=== PATIENT | female | born 1940 | race Caucasian/White ===

== ENCOUNTER 2017-02-14 10:53 | Day surgery (SDC) | payer MEDICARE, MEDICAID ==
[2015-04-26 10:50] VITALS: BMI 39.2
[2017-02-14] MEDS: Lidocaine 1% Inj (20ml) ONE ×2 (10:33→13:40)
[2017-02-14] MEDS: Bupivacaine-Epi 0.25%-1:200,000 PF Inj ONE ×2 (10:33→13:40)
[~2017-02-14 10:53] MED LIST: Lactated Ringer's 1,000 ML IV ONE; ceFAZolin IV 2 gm in Dextrose 1 GM/50 ML BAG IVPB ONE
[2017-02-14] MEDS ORDERED: ceFAZolin IV 1 gm in Dextrose 0 GM/0 ML BAG IVPB ONE (12:26)
[2017-02-14] MEDS ORDERED: ceFAZolin IV 2 gm in Dextrose 0 GM/0 ML BAG IVPB ONE (12:26)
[2017-02-14] MEDS ORDERED: Bupivacaine/Epi 0.25%-1:200,000 10 ml PF inj IJ ONE (12:27)
[2017-02-14] MEDS ORDERED: Lidocaine 1% Inj (20ml) ONE (12:27)
--- NOTE | 2017-02-14 14:15 | PCM.SURG1 ---
Surgeon's Initial Post Op Note - Surgeon's Notes Surgeon: Cindy Paste Up Artist Apprentice: Ignacio Type of Anesthesia: Local Pre-Operative Diagnosis: L breast sebaceous cyst Operative Findings: same Post-Operative Diagnosis: same Operation Performed: excision of sebaceous cyst Specimen/Specimens Removed: sebaceous cyst Estimated Blood Loss: EBL {In ML}: 5 Blood Products Given: N/A Drains Used: No Drains Post-Op Condition: Good Date of Surgery/Procedure: 02/14/17 Time of Surgery/Procedure: 14:15
[2017-02-14 14:32] VITALS: RESP 16; O2SAT 96
[2017-02-14 15:12] VITALS: BP 141/90; PULSE 72; TEMP 97.3
--- NOTE | 2017-02-16 02:51 | OP ---
PROCEDURE DATE: 02/14/2017 PREOPERATIVE DIAGNOSIS: Sebaceous cyst of the left chest and breast area. POSTOPERATIVE DIAGNOSIS: Sebaceous cyst of the left chest and breast area. PROCEDURE: Excision of sebaceous cyst of the left chest and breast area, approximately 2 x 2 cm size. SURGEON: Portillo White MD. IT SECURITY ADMINISTRATOR: Ayan Adam. TYPE OF ANESTHESIA: Local anesthesia. ESTIMATED BLOOD LOSS: Around 10 mL. DRAINS: None. PATHOLOGY: Sebaceous cyst was sent to the pathology. COMPLICATIONS: None. INTRAOPERATIVE FINDINGS: The patient had approximately 2 x 2 cm sebaceous cyst of the left chest and breast area. DESCRIPTION OF PROCEDURE: On intraoperative steps, this 77-year-old female who was diagnosed with sebaceous cyst of the left chest and breast area and the patient was consented for that. The patient was brought to the OR, placed supine on operating table. After placing the patient on monitor, the left chest and breast area was prepped and draped. An elliptical incision was made, Upper and lower flap was created and sebaceous cyst was completely excised from the underlying subcutaneous tissues and it was sent to the table for the pathology. The wound was irrigated and closed in 3 layers, subcutaneous with 2-0 Vicryl, skin with the 4-0 Monocryl, and another layer of the skin with 4-0 nylon interrupted suture and dry sterile dressing was applied. The patient tolerated the procedure well. Count of the instruments and gauze was correct. There was no apparent complication. The patient was sent to the postanesthesia care unit in stable condition. Portillo White MD
== END 2017-02-14 14:54 | disposition home or self-care (01) ==
LOC: C.SDS 10:53
PROVIDERS: ATTEND Surgery Surgical Critical Care
DX: L72.3 Sebaceous cyst (principal)